=== PATIENT | female | born 1990 | race Two or more races ===

== ENCOUNTER 2025-01-08 06:03 | Inpatient (IN) | payer OTHER ==
[~2025-01-08] VITALS: Ht 162.6 cm; Wt 93.7 kg
[2025-01-08] VITALS (12 sets, daily range): BP systolic 89–107; BP diastolic 47–70; PULSE 70–126; RESP 12–19; TEMP 97.6–100.5; O2SAT 94–100
--- NOTE | 2025-01-08 06:45 | ED.PDOC ---
General HPI Comments This is a 34 year old female KRISTA presenting to the ED with chief complaint of flank pain and hospital transfer. EMS reports patient is coming from [facility] due to having diagnosis of 8mm obstructing right kidney stone and 6mm non-obstructing left kidney stone with associated flank pain and nausea. Patient relays that she has history of kidney stones and lithotripsy in the past. Patient states she was given morphine for pain control while at [place]. Patient denies any dysuria, hematuria, vomiting, abdominal pain, or fever. Chief Complaint: Flank Pain Time Seen by MD: 06:43 Reviewed notes: Nurses Notes, Willow Analyst Notes, Medications, Allergies Allergies: Coded Allergies: NO KNOWN ALLERGIES (Unverified , 01/08/25) Information Source: Patient, Emergency Med Personnel Mode of Arrival: EMS Severity: Moderate Timing: Days Duration: Since onset Prehospital treatment: None Onset: Spontaneous History of: Kidney stone Location: (R) Flank, (L)Flank Modifying factors: None associated signs and symptoms: Nausea, Flank Pain Past Medical History PAST MEDICAL HISTORY: Kidney Stones Surgical History: , Hysterectomy, Tubal Ligation Surgical History (Other): Lithotripsy [employer] WORK[employer] History: Denies all [employer]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 Family History Family History: Reviewed,noncontributory to illness Social History Smoker: Non-Smoker Alcohol: Denies ETOH Use Drugs: Denies Drug Use Lives In: Home Constitutional: denies: chills, diaphoresis, fatigue, fever, malaise, sweats, weakness, others EENTM: denies: blurred vision, double vision, ear bleeding, ear discharge, ear drainage, ear pain, ear ringing, eye pain, eye redness, hearing loss, mouth pain, mouth swelling, nasal discharge, nose bleeding, nose congestion, nose pain, photophobia, tearing, throat pain, throat swelling, voice changes, others Respiratory: denies: cough, hemoptysis, orthopnea, SOB at rest, shortness of breath, SOB with excertion, stridor, wheezing, others Cardiovascular: denies: chest pain, dizzy spells, diaphoresis, Dyspnea on exertion, edema, irregular heart beat, left arm pain, lightheadedness, palpitations, PND, syncope, others Gastrointestinal: reports: nausea; denies: abdomen distended, abdominal pain, blood streaked bowels, constipated, diarrhea, dysphagia, difficulty swallowing, hematemesis, melena, poor appetite, poor fluid intake, rectal bleeding, rectal pain, vomiting, others Genitourinary: reports: flank pain; denies: abnormal vagina bleeding, burning, dyspareunia, dysuria, frequency, hematuria, incontinence, pain, , vagina discharge, urgency, others Neurological: denies: dizziness, fainting, headache, left sided numbness, left sided weakness, numbness, paresthesia, pre-existing deficit, right sided numbness, right sided weakness, seizure, speech problems, tingling, tremors, we akness, others Musculoskeletal: denies: back pain, gout, joint pain, joint swelling, muscle pain, muscle stiffness, neck pain, others Integumetry: denies: bruises, change in color, change in hair/nails, dryness, laceration, lesions, lumps, rash, wounds, others Allergic/Immunocompromised: denies: Difficulty Healing, Frequent Infections, Hives, Itching, others Hematologic/Lymphatic: denies: anemia, blood clots, easy bleeding, easy bruising, swollen glands, others Endocrine: denies: excessive hunger, excessive sweating, excessive thirst, excessive urination, flushing, intolerance to cold, intolerance to heat, unexplained weight gain, unexplained weight loss, others Psychiatric: denies: anxiety, bipolar disorder, depression, hopeless, panic disorder, schizophrenia, sleepless, suicidal, others All Other Systems: Reviewed and Negative Physical Exam General Appearance: Moderate Distress, Normal HEENT: Normal ENT Inspection, Pharynx Normal, TMs Normal Neck: Full Range of Motion, Non-Tender, Normal, Normal Inspection Respiratory: Chest Non-Tender, Lungs Clear, No Accessory Muscle Use, No Respiratory Distress, Normal Breath Sounds Cardiovascular: No Edema, No JVD, No Murmur, No Gallop, Normal Peripheral Pulses, Regular Rate/Rhythm Breast Exam: Deferred Gastrointestinal: No Organomegaly, Non Tender, No Pulsatile Mass, Normal Bowel Sounds, Soft Genitalia: Deferred Pelvic: Deferred Rectal: Deferred Extremities: No calf tenderness, Normal capillary refill, Normal inspection, Normal range of motion, Non-tender, No pedal edema Musculoskeletal : Apperance: Normal Neurologic: Alert, timber deadener II-XII nml as Tested, No Motor Deficits, Normal Affect, Normal Mood, No Sensory Deficits Cerebellar Function: Normal Reflexes: Normal Skin: Dry, Normal Color, Warm Peripheral Pulses: 3+ Radial (R), 3+ Radial (L) Lymphatic: No Adenopathy Was a procedure done? Was a procedure done?: No Differential Diagnosis Kidney stone (Female): Pyelonephritis, Urolithiasis X-Ray, Labs, Meds, VS Vital Signs Date Time Temp Pulse Resp B/P (MAP) Pulse Ox O2 Delivery O2 Flow Rate FiO2 01/08/25 06:16 98.6 70 16 107/72 (84) 98 98.6 01/08/25 06:16 70 16 98 Room Air* 0 21 01/08/25 06:09 98.6 70 16 107/72 (84) 98 98.6 Lab Test 01/08/25 06:54 Range/Units White Blood Count Pending Red Blood Count Pending Hemoglobin Pending Hematocrit Pending Mean Corpuscular Volume Pending Mean Corpuscular Hemoglobin Pending Mean Corpuscular Hemoglobin Concent Pending Red Cell Distribution Width Pending Platelet Count Pending Mean Platelet Volume Pending Neutrophils (%) (Auto) Pending Lymphocytes (%) (Auto) Pending Monocytes (%) (Auto) Pending Basophils (%) (Auto) Pending Neutrophils # (Auto) Pending Lymphocytes # (Auto) Pending Monocytes # (Auto) Pending Sodium Level Pending Potassium Level Pending Chloride Level Pending Carbon Dioxide Level Pending Anion Gap Pending Blood Urea Nitrogen Pending Creatinine Pending Glomerular Filtration Rate Calc Pending BUN/Creatinine Ratio Pending Serum Glucose Pending Calcium Level Pending Patient alert. Came in from [facility] for kidney stone. Imaging from [place] showed 8 mm kidney stone. Vitals stable. Pain better controlled. Establish intravenous access. Was given fluids. Was given pain medication. Was given Zofran. Reviewed her visit at [facility]. Explained to the patient. Continue monitoring. Time of 1ST Reevaluation: 07:42 Reevaluation 1ST: Unchanged Patient Education/Counseling: Diagnosis, Treatment Family Education/Counseling: No Family Present Additional Information Previous visits reviewed: None The following tests were ordered, and results were reviewed by me: CBC, BMP, UA Additional Information was gathered from interviewing the following independent historians: EMS I reviewed and agreed with the following test results read by other providers: None I discussed treatment and results with medical personnel and: patient Comprehensive systems review obtained and negative except for what is stated in the HPI. SEPSIS Sepsis Screen Date sepsis recognized/suspect: Jan 08, 2025 Time Sepsis recognized/suspect: 0608 Recent Procedure: No On Antibiotic Therapy: No Respiratory Rate >20: No Heart Rate >90: No Temp<36 C (96.8 F) or >38.3 C: No SBP <90 or MAP <65 mmHG: No New Acute Mental Status Change: No Is the patient on CPAP, BIPAP,: No Physician Orders Complete Blood Count (01/08/25 06:37) Urinalysis (01/08/25 06:37) Sodium Chloride 0.9% (01/08/25 06:45) Basic Metabolic Panel (01/08/25 06:37) Vital Signs Date Time Temp Pulse Resp B/P (MAP) Pulse Ox O2 Delivery O2 Flow Rate FiO2 01/08/25 06:16 98.6 70 16 107/72 (84) 98 98.6 01/08/25 06:16 70 16 98 Room Air* 0 21 01/08/25 06:09 98.6 70 16 107/72 (84) 98 98.6 Laboratory Tests Test 01/08/25 06:54 White Blood Count Pending Departure 1 Departure Time of Disposition: 07:19 Impression: Primary Impression: Kidney stone Disposition: ADMITTED INPATIENT Admit to: Med Surg Condition: Guarded Critical Care Note Critical Care Time?: Yes (90 min-critical care time only) Critical care comment: Pain control Stability Stability form required: No Heart Score Heart Score: Heart Score Response (Comments) Value History N/A 0 EKG N/A 0 Age N/A 0 Risk Factors N/A 0 Troponin N/A 0 Total 0 I personally scribed for SHILPI FONTAINE MD ([email or web address]) on 01/08/25 at 06:45. Electronically submitted by Markus Fraire ([email or web address]). SHILPI FONTAINE MD Jan 08, 2025 06:45
[2025-01-08 07:27] LABS: Hematocrit 38.0 % (36.0-46.0); Hemoglobin 13.0 g/dL (12.2-16.2); Mean Corpuscular Hemoglobin 33.1 pg (28.0-32.0); Mean Corpuscular Volume 96.5 fL (80.0-100.0); Nucleated Red Blood Cells % 0.0 %
[2025-01-08] MEDS: SODIUM CHLORIDE 0.9% 1,000 ML IVB ONE (07:34)
[2025-01-08] MEDS: KETOROLAC TROMETH 30 MG/ML 1ML VIAL IV ONE (07:34)
[2025-01-08 07:37] LABS: Chloride 106 mmol/L (98-107); Potassium 4.3 mmol/L (3.5-5.1); Sodium 140 mmol/L (136-145)
[2025-01-08 07:38] LABS: Anion Gap 7 (5-15); Carbon Dioxide 27 mmol/L (20-31)
[2025-01-08 07:39] LABS: Calcium 9.2 mg/dL (8.7-10.4)
[2025-01-08] MEDS: ONDANSETRON HCL 4 MG/2 ML VIAL IV ONE ×2 (07:42→10:16)
[2025-01-08 07:44] LABS: BUN/Creatinine Ratio 10.0 (10.0-20.0); Blood Urea Nitrogen 10 mg/dL (9-23); Glucose 141 mg/dL (74-106)
[2025-01-08] MEDS: MORPHINE SULFATE 4 MG/ML SYR/VIAL IV ONE (10:17)
[2025-01-08 11:05] LABS: Urine Protein, UAD Negative (Negative)
[2025-01-08] MEDS ORDERED: MORPHINE SULFATE INJ 2 MG/ml SYRG IV PRN (11:15)
--- NOTE | 2025-01-08 11:16 | DVH ---
CLINICAL INFORMATION: 34 years old, Female; flank pain. TECHNIQUE: Axial CT images of the abdomen and pelvis were obtained without IV contrast. Coronal and s agittal reformatted images were obtained, reviewed, and stored. Evaluation of the parenchymal organs is limited without IV contrast. Evaluation of the bowel and mesentery is limited without oral contras t. All CT scans at this medical facility are performed using dose modulation techniques as appropriat e to a performed exam including the following: Automated exposure control was utilized; adjustment of the MA and/or KV according to patient size; and use of iterative reconstruction technique. CTDIvol = 15.13 mGy DLP = 910.28 mGy-cm COMPARISON: None FINDINGS: Lung bases: Mild atelectasis in the lung bases. Liver: Hepatic steatosis. Liver is enlarged, measuring up to 20 cm in craniocaudal dimension of the m idclavicular line. Biliary: No calcified gallstones or biliary ductal dilatation. Spleen: Unremarkable. Pancreas: Grossly unremarkable in its noncontrast enhanced appearance. Adrenal glands: Unremarkable. No mass. Kidneys: Moderate to marked right hydronephrosis and hydroureter with 7 mm obstructing calculus in th e distal right ureter just proximal to the ureterovesical junction. There is moderate right perinephr ic and periureteral stranding. There are additional small bilateral renal calculi, with the largest i n the inferior pole of the left kidney measuring 4.5 mm. Aorta/Vascular: Minimal atherosclerotic calcification. No abdominal aortic aneurysm. Retroperitoneum: No mass or lymphadenopathy. Bowel/mesentery: No small bowel obstruction. No free air or free fluid. Appendix is visualized and ap pears unremarkable. Pelvic organs: Grossly unremarkable. Bladder: Unremarkable. No mass. Abdominal wall: No mass or hernia. Bones: No acute fracture or suspicious intraosseous lesion. IMPRESSION: 1. Moderate to marked right hydronephrosis and hydroureter with 7 mm obstructing calculus in the dist al right ureter, just proximal to the ureterovesical junction. 2. Additional small bilateral nonobstructing renal calculi. 3. Hepatic steatosis and hepatomegaly. 4. Additional findings as described above.
--- NOTE | 2025-01-08 11:22 | DVHHP2 ---
History of Present Illness Reason for Visit: Right flank pain History of Present Illness Ariana Naidu is a 34-year-old female with past medical history of kidney stones, , hysterectomy, tubal ligation, and lithotripsy unknown which kidney in 2008 who presents to the ED with right flank pain. Patient was a transfer from [facility] diagnosed with an 8 mm obstructing right kidney stone and 6 mm nonobstructing left kidney stone. Patient reports her pain 8/10 sharp and constant. She states that medications make it better and the pain that started yesterday around 3:00 p.m. Patient denies any recent sick contacts, recent trauma or injury, recent travels, recent ingestion of spoiled food, abdominal pain, nausea, vomiting, diarrhea, chest pain, shortness of breath, fever, chills, lightheadedness, weakness, or dizziness. Past Medical History Nephrolithiasis Past Surgical History: , Hysterectomy, Other (Lithotripsy in 2008), Tubal Ligation Family History: Cancer, DM, Other (Mom with breast cancer and diabetes. Dad with diabetes, leukemia, kidney disease, and CHF.) Smoke: No ALCOHOL: none Lives: with Family Domestic Violence: Neg Review of Systems Musculoskeletal: other (Right flank pain) Allergies: Coded Allergies: NO KNOWN ALLERGIES (Unverified , 01/08/25) Exam Vital Signs Vital Signs Date Time Temp Pulse Resp B/P (MAP) Pulse Ox O2 Delivery O2 Flow Rate FiO2 01/08/25 11:14 90 14 103/61 01/08/25 11:08 98.1 96 98.1 01/08/25 07:50 Room Air* 0 21 General Appearance: Alert, Oriented X3, Cooperative, No acute distress HEENT: Atraumatic, PERRLA, EOMI, Mucous membr. moist/pink Respiratory: Normal air movement Cardiovascular: Normal S1, Normal S2 Abdominal: Soft Extremities: Normal pulses Skin: No significant lesion Neuro: Normal speech, Strength at 5/5 X4 ext, Normal tone, Sensation intact Psych/Mental Status: Mental status NL, Mood NL Labs/Xrays Labs Test 01/08/25 10:00 01/08/25 06:54 Range/Units Urine Color Light-yellow Yellow Urine Clarity Clear Clear Urine pH 5.5 5.0-9.0 Urine Specific [place] 1.023 1.001-1.035 Urine Protein Negative Negative Urine Ketones Negative Negative Urine Blood 2+ H Negative /uL Urine Nitrite Negative Negative Urine Bilirubin Negative Negative Urine Urobilinogen Normal Negative mg/dL Urine Leukocyte Esterase Trace Negative /uL Urine RBC 17 0 - 4 /hpf Urine Microscopic WBC 14 H 0-5 /HPF Urine Squamous Epithelial Cells Few <5 /hpf Urine Bacteria None seen None Seen /hpf Urine Mucus Few None Seen Urine Glucose Normal Normal mg/dL White Blood Count 13.1 H 4.4-10.8 10^3/uL Red Blood Count 3.94 L 4.0-5.20 10^6/uL Hemoglobin 13.0 12.2-16.2 g/dL Hematocrit 38.0 36.0-46.0 % Mean Corpuscular Volume 96.5 80.0-100.0 fL Mean Corpuscular Hemoglobin 33.1 H 28.0-32.0 pg Mean Corpuscular Hemoglobin Concent 34.3 32.0-36.0 g/dL Red Cell Distribution Width 12.8 11.8-14.3 % Platelet Count 263 140-450 10^3/uL Mean Platelet Volume 8.2 6.9-10.8 fL Neutrophils (%) (Auto) 85.7 H 37.0-80.0 % Lymphocytes (%) (Auto) 8.6 L 10.0-50.0 % Monocytes (%) (Auto) 5.2 0.0-12.0 % Eosinophils (%) (Auto) 0.3 0.0-7.0 % Basophils (%) (Auto) 0.2 0.0-2.0 % Neutrophils # (Auto) 11.2 H 1.6-8.6 10 ^3/uL Lymphocytes # (Auto) 1.1 0.4-5.4 10 ^3/uL Monocytes # (Auto) 0.7 0-1.3 10 ^3/uL Eosinophils # (Auto) 0 0-0.8 10 ^3/uL Basophils # (Auto) 0 0-0.2 10 ^3/uL Nucleated Red Blood Cells 0.0 % Sodium Level 140 136-145 mmol/L Potassium Level 4.3 3.5-5.1 mmol/L Chloride Level 106 98-107 mmol/L Carbon Dioxide Level 27 20-31 mmol/L Anion Gap 7 5-15 Blood Urea Nitrogen 10 9-23 mg/dL Creatinine 1.00 0.550-1.02 mg/dL Glomerular Filtration Rate Calc 75 >90 mL/min BUN/Creatinine Ratio 10.0 10.0-20.0 Serum Glucose 141 H 74-106 mg/dL Calcium Level 9.2 8.7-10.4 mg/dL CLINICAL INFORMATION: 34 years old, Female; flank pain. TECHNIQUE: Axial CT images of the abdomen and pelvis were obtained without IV contrast. Coronal and sagittal reformatted images were obtained, reviewed, and stored. Evaluation of the parenchymal organs is limited without IV contrast. Evaluation of the bowel and mesentery is limited without oral contrast. All CT scans at this medical facility are performed using dose modulation techniques as appropriate to a performed exam including the following: Automated exposure control was utilized; adjustment of the MA and/or KV according to patient size; and use of iterative reconstruction technique. CTDIvol = 15.13 mGy DLP = 910.28 mGy-cm COMPARISON: None FINDINGS: Lung bases: Mild atelectasis in the lung bases. Liver: Hepatic steatosis. Liver is enlarged, measuring up to 20 cm in craniocaudal dimension of the midclavicular line. Biliary: No calcified gallstones or biliary ductal dilatation. Spleen: Unremarkable. Pancreas: Grossly unremarkable in its noncontrast enhanced appearance. Adrenal glands: Unremarkable. No mass. Kidneys: Moderate to marked right hydronephrosis and hydroureter with 7 mm obstructing calculus in the distal right ureter just proximal to the ureterovesical junction. There is moderate right perinephric and periureteral stranding. There are additional small bilateral renal calculi, with the largest in the inferior pole of the left kidney measuring 4.5 mm. Aorta/Vascular: Minimal atherosclerotic calcification. No abdominal aortic aneurysm. Retroperitoneum: No mass or lymphadenopathy. Bowel/mesentery: No small bowel obstruction. No free air or free fluid. Appendix is visualized and appears unremarkable. Pelvic organs: Grossly unremarkable. Bladder: Unremarkable. No mass. Abdominal wall: No mass or hernia. Bones: No acute fracture or suspicious intraosseous lesion. IMPRESSION: 1. Moderate to marked right hydronephrosis and hydroureter with 7 mm obstructing calculus in the distal right ureter, just proximal to the ureterovesical junction. 2. Additional small bilateral nonobstructing renal calculi. 3. Hepatic steatosis and hepatomegaly. SEPSIS Sepsis Screen Date sepsis recognized/suspect: Jan 08, 2025 Time Sepsis recognized/suspect: 0750 Recent Procedure: No On Antibiotic Therapy: No Respiratory Rate >20: No Heart Rate >90: No Temp<36 C (96.8 F) or >38.3 C: No SBP <90 or MAP <65 mmHG: No New Acute Mental Status Change: No Is the patient on CPAP, BIPAP,: No Physician Orders Ct Ab Pel Wo Con-No Oral Or Iv (01/08/25 10:33) Admit (01/08/25 11:15) Allergies (01/08/25 11:15) Code Status (01/08/25 11:15) 0.9% Ns 1000 Ml (01/08/25 11:15) Hydrocodone-Acet 5/325mg Tab ([place] (01/08/25 11:15) Ondansetron Hcl (Zofran) (01/08/25 11:15) Complete Blood Count (01/09/25 04:00) Comprehensive Metabolic Panel (01/09/25 04:00) Acetaminophen Tablet (Tylenol Tablet) (01/08/25 11:15) Morphine Sulfate Injection (01/08/25 11:15) Sequential Compression Device (01/08/25 ) Ceftriaxone Ivpb Rocephin (01/08/25 11:15) Vital Signs Date Time Temp Pulse Resp B/P (MAP) Pulse Ox O2 Delivery O2 Flow Rate FiO2 01/08/25 11:14 90 14 103/61 01/08/25 11:08 98.1 78 16 110/64 (79) 96 98.1 01/08/25 10:17 78 16 110/64 01/08/25 10:07 82 18 110/64 (79) 97 01/08/25 07:50 98.1 72 18 101/53 (69) 96 98.1 01/08/25 07:50 72 18 96 Room Air* 0 21 01/08/25 06:16 98.6 70 16 107/72 (84) 98 98.6 01/08/25 06:16 70 16 98 Room Air* 0 21 01/08/25 06:09 98.6 70 16 107/72 (84) 98 98.6 Laboratory Tests Test 01/08/25 06:54 White Blood Count 13.1 10^3/uL (4.4-10.8) H Medications Medications Dose Ordered Sig/Mary Route Start Time Stop Time Status Last Admin Dose Admin Ketorolac Tromethamine 30 mg ONCE ONCE IV 01/08/25 06:45 01/08/25 06:46 DC 01/08/25 07:34 30 MG Morphine Sulfate 4 mg ONCE ONCE IV 01/08/25 09:30 01/08/25 09:31 DC 01/08/25 10:17 4 MG Ondansetron HCl 4 mg ONCE ONCE IV 01/08/25 06:45 01/08/25 06:46 DC 01/08/25 07:42 4 MG Ondansetron HCl 4 mg ONCE ONCE IV 01/08/25 09:30 01/08/25 09:31 DC 01/08/25 10:16 4 MG Sodium Chloride 1,000 ml @ 1,000 mls/hr Q1H ONCE IVB 01/08/25 06:45 01/08/25 07:44 DC 01/08/25 07:34 1,000 MLS/HR Assessment/Plan Assessment/Plan Assessment Intractable right flank pain likely due to kidney stone Moderate to marked right hydronephrosis and hydroureter with 7 mm obstructing calculus in the distal right ureter, just proximal to the ureterovesical junction small bilateral nonobstructing renal calculi Hepatic steatosis Hepatomegaly Leukocytosis likely due to nephrolithiasis Hyperglycemia Obesity History of nephrolithiasis History of History of hysterectomy History of tubal ligation History of lithotripsy in [address] [facility] CT abdomen and pelvis ordered Antiemetics Pain management IV antibiotics-ceftriaxone UA NS 1 L given in ED Hemoglobin A1c ISS and Accu-Cheks IV fluids NPO for now until after urology sees patient Per patient no home medications DVT prophylaxis-not indicated patient ambulating PUD prophylaxis-not indicated no history of GERD or GI bleed Discussed plan of care with patient and nurse Counseled patient on lifestyle modifications, diet, and exercise Urology consult [id number] Preventive counseling healthy eating habits, physical activity, and regular checkups Plan discussed with: Patient My Orders Orders - DICK MARION DIRECTOR [employer] Procedure Category Date Status Time Ct Ab Pel Wo Con-No CT 01/08/25 Resulted Oral Or Iv 10:33 Admit ADMIT 01/08/25 Verified 11:15 Allergies SHELIA 01/08/25 Verified 11:15 Code Status CODE 01/08/25 Verified 11:15 0.9% Ns 1000 Ml PHA 01/08/25 Verified 11:15 Hydrocodone-Acet PHA 01/08/25 Verified 5/325mg Tab ([place]y 11:15 Ondansetron Hcl PHA 01/08/25 Verified (Zofran) 11:15 Complete Blood Count LAB 01/09/25 Verified 04:00 Comprehensive LAB 01/09/25 Verified Metabolic Panel 04:00 Acetaminophen Tablet PHA 01/08/25 Verified (Tylenol Tablet) 11:15 Morphine Sulfate PHA 01/08/25 Verified Injection 11:15 Sequential SHELIA 01/08/25 Verified Compression Device Ceftriaxone Ivpb PHA 01/08/25 Verified Rocephin 11:15 Date of Service: Jan 08, 2025 Billing Provider: DICK MARION Common Visit Codes: 77947-[id number] INP/OBS CARE (HIGH) Secondary Visit Codes: [id number] COUNSELING IND DICK MARION Jan 08, 2025 11:22
[2025-01-08] MEDS ORDERED: DEXTROSE (50%) 50ML SYRG IV PRN (11:30)
[2025-01-08] MEDS ORDERED: MANNITOL FTV 25% 12.5 GM/50 ML 50 ML IV ONE (12:15)
[2025-01-08 12:54] LABS: INR 0.98 (0.9-1.15); Partial Thromboplastin Time 27.4 SEC (24.5-34.5); Prothrombin Time 10.4 sec (9.3-11.8)
[2025-01-08] MEDS: cefTRIAXone 1GM/50ML D5W 50 ML IV SCH (12:59)
[2025-01-08] MEDS: SODIUM CHLORIDE 0.9% 1,000 ML IV SCH (13:06)
[2025-01-08] MEDS: InsuLIN REG 1unit/0.01ml Soln (100units/ml) SC SCH (13:06)
[2025-01-08] MEDS: ACCU-CHEK COMFORT CURVE STRIP VI SCH (13:06)
[2025-01-08] MEDS: fentaNYL CITRATE 100 MCG/2 ML VL ONE ×2 (14:15→15:09)
[2025-01-08] MEDS: MIDAZOLAM HCL 2MG/2ML 2ml VIAL (1mg/ml) ONE (14:16)
[2025-01-08] MEDS: LIDOCAINE 2%HCL (LOCAL ANESTH.) INJ 20ML MDV ONE (14:16)
[2025-01-08] MEDS: IODIXANOL 320MG/ML 100ML BTL IV ONE (14:25)
--- NOTE | 2025-01-08 17:03 | DVH ---
PROCEDURE: Genitourinary catheter placement Procedural Personnel Attending physician(s): Adelfo Lozano Fellow physician(s): None Resident physician(s): None Advanced practice provider(s): None Pre-procedure diagnosis: Right UVJ stone Post-procedure diagnosis: Same Indication: Urinary obstruction No Additional clinical history: None Complications: No immediate complications. IMPRESSION: Right nephrostomy tube placement. Plan: Flush drain with 10 cc normal saline daily to maintain patency PROCEDURE SUMMARY - Target organ: Unilateral burns paiute kidney - Image-guided placement of genitourinary catheter(s) - Additional procedure(s): None PROCEDURE DETAILS: Pre-procedure Consent: Informed consent for the procedure including risks, benefits and alternatives was obtained a nd time-out was performed prior to the procedure. Preparation: The site was prepared and draped using maximal sterile barrier technique including cutan eous antisepsis. Anesthesia/sedation Level of anesthesia/sedation: Moderate sedation (conscious sedation) Anesthesia/sedation administered by: Independent trained observer under attending supervision with co ntinuous monitoring of the patient s level of consciousness and physiologic status Total intra-service sedation time (minutes): 30 Genitourinary catheter placement Side:Right burns paiute Local anesthesia was administered. A needle was advanced into a lower pole calyx under ultrasound and fluoroscopy guidance. A wire was advanced, the tract was serially dilated and a nephrostomy tube was placed . Contrast injection was performed. Genitourinary catheter placed: 8.5 Croatian multipurpose drain Findings: Moderate hydronephrosis with opacification to the level of the midureter External catheter securement: Non-absorbable suture Additional genitourinary system intervention Side: NA Genitourinary intervention: None Location of intervention: Not applicable Device used: Not applicable Description of intervention: Not applicable Post-intervention findings: Not applicable Contrast Contrast agent: Omnipaque 350 Contrast volume (mL): 7 Radiation Dose Fluoroscopy time (seconds): 53 Reference air kerma (mGy): 6 Kerma area product (Gy-cm2): 0.88 Additional Details Additional description of procedure: None Registry event: V/3/f Device used: Not applicable Equipment details: None Specimens removed: None. A sample was not sent for analysis. Estimated blood loss (mL): Less than 10 Standardized report: [email or web address] Attestation Signer name: Adelfo Lozano I attest that I was present for the entire procedure. I reviewed the stored images and agree with the report as written.
--- NOTE | 2025-01-08 17:04 | DVH ---
PROCEDURE: Genitourinary catheter placement Procedural Personnel Attending physician(s): Adelfo Lozano Fellow physician(s): None Resident physician(s): None Advanced practice provider(s): None Pre-procedure diagnosis: Right UVJ stone Post-procedure diagnosis: Same Indication: Urinary obstruction No Additional clinical history: None Complications: No immediate complications. IMPRESSION: Right nephrostomy tube placement. Plan: Flush drain with 10 cc normal saline daily to maintain patency PROCEDURE SUMMARY - Target organ: Unilateral [place] kidney - Image-guided placement of genitourinary catheter(s) - Additional procedure(s): None PROCEDURE DETAILS: Pre-procedure Consent: Informed consent for the procedure including risks, benefits and alternatives was obtained a nd time-out was performed prior to the procedure. Preparation: The site was prepared and draped using maximal sterile barrier technique including cutan eous antisepsis. Anesthesia/sedation Level of anesthesia/sedation: Moderate sedation (conscious sedation) Anesthesia/sedation administered by: Independent trained observer under attending supervision with co ntinuous monitoring of the patient s level of consciousness and physiologic status Total intra-service sedation time (minutes): 30 Genitourinary catheter placement Side:Right [place] Local anesthesia was administered. A needle was advanced into a lower pole calyx under ultrasound and fluoroscopy guidance. A wire was advanced, the tract was serially dilated and a nephrostomy tube was placed . Contrast injection was performed. Genitourinary catheter placed: 8.5 Sami multipurpose drain Findings: Moderate hydronephrosis with opacification to the level of the midureter External catheter securement: Non-absorbable suture Additional genitourinary system intervention Side: NA Genitourinary intervention: None Location of intervention: Not applicable Device used: Not applicable Description of intervention: Not applicable Post-intervention findings: Not applicable Contrast Contrast agent: Omnipaque 350 Contrast volume (mL): 7 Radiation Dose Fluoroscopy time (seconds): 53 Reference air kerma (mGy): 6 Kerma area product (Gy-cm2): 0.88 Additional Details Additional description of procedure: None Registry event: V/3/f Device used: Not applicable Equipment details: None Specimens removed: None. A sample was not sent for analysis. Estimated blood loss (mL): Less than 10 Standardized report: [email or web address] Attestation Signer name: Adelfo Lozano I attest that I was present for the entire procedure. I reviewed the stored images and agree with the report as written.
[2025-01-08] MEDS: HYDROcodone-ACET 5/325MG TAB PO PRN (18:11)
--- NOTE | 2025-01-08 19:00 | DVHINCON2 ---
Date of service: Jan 08, 2025 Referring Physician hospitalist Reason for Consultation hydronephrosis, obstructing stone History of Present Illness History Source: Patient, RN Notes, MD Notes Exam Limitations: No limitations HPI 34 year old female KRISTA presenting to the ED with chief complaint of flank pain and hospital transfer. EMS reports patient is coming from [facility] due to having diagnosis of 8mm obstructing right kidney stone and 6mm non- obstructing left kidney stone with associated flank pain and nausea. Patient relays that she has history of kidney stones and lithotripsy in the past. Patient states she was given morphine for pain control while at [place]. Patient denies any dysuria, hematuria, vomiting, abdominal pain, or fever. Past Medical History Patient Family History: Cardiovascular disease G8 FATHER Diabetes mellitus G8 MOTHER G8 FATHER FH: breast cancer G8 MOTHER FH: chronic kidney disease G8 FATHER Review of Systems Genitourinary: Pain H&P Exam Vital Signs Vital Signs Date Time Temp Pulse Resp B/P (MAP) Pulse Ox O2 Delivery O2 Flow Rate FiO2 01/08/25 17:00 97.6 101 19 107/65 (79) 99 97.6 01/08/25 16:37 Nasal Cannula* 2 28 General Appeara: Well developed, Well nourished, Normal Appearance Neuro/Mental St: Alert, Oriented Appearance: Appropriate appearance, Appropriate insight Eye contact/ Speech: Cooperative, Good eye contact, Normal speech Skin Exam: Normal inspection, Normal color, Warm/dry Labs/Xrays [place] [address] Ph: [phone] DIAGNOSTIC IMAGING Diagnostic Imaging Report : [id number] Signed PATIENT: ESTELLA CHRISTOPHERLORENZOCCT: [id number] UNIT: [id number] : 1990 LOC: ER ROOM / BED: / AGE / SEX: 34 / F ADM STATUS: REG ER SERVICE 1033 ORDERING PHYSICIAN: DICK MARION PROCEDURE(s): ABPL - CT AB PEL WO CON-NO ORAL OR IV REASON: flank pain ORDER NUMBER(s): [id number], ACCESSION NUMBER(s): [id number] CLINICAL INFORMATION: 34 years old, Female; flank pain. TECHNIQUE: Axial CT images of the abdomen and pelvis were obtained without IV contrast. Coronal and sagittal reformatted images were obtained, reviewed, and stored. Evaluation of the parenchymal organs is limited without IV contrast. Evaluation of the bowel and mesentery is limited without oral contrast. All CT scans at this medical facility are performed using dose modulation techniques as appropriate to a performed exam including the following: Automated exposure control was utilized; adjustment of the MA and/or KV according to patient size; and use of iterative reconstruction technique. CTDIvol = 15.13 mGy DLP = 910.28 mGy-cm COMPARISON: None FINDINGS: Lung bases: Mild atelectasis in the lung bases. Liver: Hepatic steatosis. Liver is enlarged, measuring up to 20 cm in craniocaudal dimension of the midclavicular line. Biliary: No calcified gallstones or biliary ductal dilatation. Spleen: Unremarkable. Pancreas: Grossly unremarkable in its noncontrast enhanced appearance. Adrenal glands: Unremarkable. No mass. Kidneys: Moderate to marked right hydronephrosis and hydroureter with 7 mm obstructing calculus in the distal right ureter just proximal to the ureterovesical junction. There is moderate right perinephric and periureteral stranding. There are additional small bilateral renal calculi, with the largest in the inferior pole of the left kidney measuring 4.5 mm. Aorta/Vascular: Minimal atherosclerotic calcification. No abdominal aortic aneurysm. Retroperitoneum: No mass or lymphadenopathy. Bowel/mesentery: No small bowel obstruction. No free air or free fluid. Appendix is visualized and appears unremarkable. Pelvic organs: Grossly unremarkable. Bladder: Unremarkable. No mass. Abdominal wall: No mass or hernia. Bones: No acute fracture or suspicious intraosseous lesion. IMPRESSION: 1. Moderate to marked right hydronephrosis and hydroureter with 7 mm obstructing calculus in the distal right ureter, just proximal to the ureterovesical junction. 2. Additional small bilateral nonobstructing renal calculi. 3. Hepatic steatosis and hepatomegaly. 4. Additional findings as described above. ATED BY: JOSE RAMON PARKER DO DICTATED DATE/TIME: 01/08/25 1114 SIGNED BY: JOSE RAMON PARKER DO SIGNED DATE/TIME: 01/08/25 1114 CC: Labs Test 01/08/25 17:10 01/08/25 12:15 01/08/25 10:00 01/08/25 06:54 Range/Units POC Glucose 127 H 70-106 mg/dl Prothrombin Time 10.4 9.3-11.8 sec Prothrombin Time INR 0.98 0.9-1.15 Activated Partial Thromboplast Time 27.4 24.5-34.5 SEC Urine Color Light-yellow Yellow Urine Clarity Clear Clear Urine pH 5.5 5.0-9.0 Urine Specific [place] 1.023 1.001-1.035 Urine Protein Negative Negative Urine Ketones Negative Negative Urine Blood 2+ H Negative /uL Urine Nitrite Negative Negative Urine Bilirubin Negative Negative Urine Urobilinogen Normal Negative mg/dL Urine Leukocyte Esterase Trace Negative /uL Urine RBC 17 0 - 4 /hpf Urine Microscopic WBC 14 H 0-5 /HPF Urine Squamous Epithelial Cells Few <5 /hpf Urine Bacteria None seen None Seen /hpf Urine Mucus Few None Seen Urine Glucose Normal Normal mg/dL White Blood Count 13.1 H 4.4-10.8 10^3/uL Red Blood Count 3.94 L 4.0-5.20 10^6/uL Hemoglobin 13.0 12.2-16.2 g/dL Hematocrit 38.0 36.0-46.0 % Mean Corpuscular Volume 96.5 80.0-100.0 fL Mean Corpuscular Hemoglobin 33.1 H 28.0-32.0 pg Mean Corpuscular Hemoglobin Concent 34.3 32.0-36.0 g/dL Red Cell Distribution Width 12.8 11.8-14.3 % Platelet Count 263 140-450 10^3/uL Mean Platelet Volume 8.2 6.9-10.8 fL Neutrophils (%) (Auto) 85.7 H 37.0-80.0 % Lymphocytes (%) (Auto) 8.6 L 10.0-50.0 % Monocytes (%) (Auto) 5.2 0.0-12.0 % Eosinophils (%) (Auto) 0.3 0.0-7.0 % Basophils (%) (Auto) 0.2 0.0-2.0 % Neutrophils # (Auto) 11.2 H 1.6-8.6 10 ^3/uL Lymphocytes # (Auto) 1.1 0.4-5.4 10 ^3/uL Monocytes # (Auto) 0.7 0-1.3 10 ^3/uL Eosinophils # (Auto) 0 0-0.8 10 ^3/uL Basophils # (Auto) 0 0-0.2 10 ^3/uL Nucleated Red Blood Cells 0.0 % Sodium Level 140 136-145 mmol/L Potassium Level 4.3 3.5-5.1 mmol/L Chloride Level 106 98-107 mmol/L Carbon Dioxide Level 27 20-31 mmol/L Anion Gap 7 5-15 Blood Urea Nitrogen 10 9-23 mg/dL Creatinine 1.00 0.550-1.02 mg/dL Glomerular Filtration Rate Calc 75 >90 mL/min BUN/Creatinine Ratio 10.0 10.0-20.0 Serum Glucose 141 H 74-106 mg/dL Hemoglobin A1c 5.0 <5.7 % A1C Calcium Level 9.2 8.7-10.4 mg/dL Assessment/Plan Problem List: (1) Hydronephrosis with renal and ureteral calculous obstruction (2) Kidney stone Plan consult IR for PCN outpt lithotripsy to be arranged. machine is not available at this time Plan discussed with: Patient, Other [employer] Jan 08, 2025 19:00
[2025-01-08] MEDS: ACETAMINOPHEN 325 MG TAB PO PRN (19:58)
[2025-01-08] MEDS: SODIUM CHLORIDE 0.9% 1,000 ML IV ONE (21:32)
[2025-01-09] VITALS (9 sets, daily range): BP systolic 81–103; BP diastolic 37–63; PULSE 65–89; RESP 16–20; TEMP 97.2–98.8; O2SAT 93–96
[2025-01-09] MEDS: SODIUM CHLORIDE 0.9% 500 ML IV ONE (00:05)
[2025-01-09] MEDS: MIDODRINE HCL 10 MG TAB PO SCH (00:05)
[2025-01-09 01:53] LABS: Hematocrit 29.1 % (36.0-46.0); Hemoglobin 10.1 g/dL (12.2-16.2); Mean Corpuscular Hemoglobin 33.8 pg (28.0-32.0); Mean Corpuscular Volume 96.9 fL (80.0-100.0); Nucleated Red Blood Cells % 0.1 %
[2025-01-09 05:51] LABS: Hematocrit 30.1 % (36.0-46.0); Hemoglobin 10.6 g/dL (12.2-16.2); Nucleated Red Blood Cells % 0.0 %
[2025-01-09 05:57] LABS: Alanine Aminotransferase 35 U/L (7-40); Albumin 3.4 g/dL (3.2-4.8); Alkaline Phosphatase 51 U/L (46-116); Anion Gap 8 (5-15); BUN/Creatinine Ratio 11.1 (10.0-20.0); Calcium 8.8 mg/dL (8.7-10.4); Carbon Dioxide 25 mmol/L (20-31); Mean Corpuscular Hemoglobin 34.5 pg (28.0-32.0); Mean Corpuscular Volume 97.4 fL (80.0-100.0); Sodium 142 mmol/L (136-145)
[2025-01-09 05:58] LABS: Bilirubin, Total 0.6 mg/dL (0.2-1.0)
[2025-01-09 06:02] LABS: Blood Urea Nitrogen 7 mg/dL (9-23); Chloride 109 mmol/L (98-107); Glucose 122 mg/dL (74-106); Potassium 3.3 mmol/L (3.5-5.1); Total Protein 5.1 g/dL (5.7-8.2)
[2025-01-09] MEDS: TAMSULOSIN HYDROCHLORIDE 0.4 MG CAP PO SCH (08:24)
[2025-01-09] MEDS: ONDANSETRON HCL 4 MG/2 ML VIAL IV PRN (12:04)
--- NOTE | 2025-01-09 12:44 | DVHPN2 ---
Reviewed: Care Plan, H&P, Labs, Medications, Previous Orders, Radiology Changes from previous H/P or p: No Changes General: Per HPI Musculoskeletal: other (Right flank pain) Objective Vitals Vital Signs Date Time Temp Pulse Resp B/P (MAP) Pulse Ox O2 Delivery O2 Flow Rate FiO2 01/09/25 09:00 97.8 65 18 81/50 (60) 95 97.8 01/08/25 20:00 Room Air* 0 21 Intake/Output Intake and Output 01/09/25 07:00 Intake Total 2230 ml Output Total 775 ml Balance 1455 ml Intake Oral 1100 ml IV Total 1130 ml Output Drainage Total 775 ml # Voids 4 General Appearance: Alert, Oriented X3, Cooperative Abdomen: Normal bowel sounds, Soft, No tenderness Neuro: Normal gait, Normal speech Medications Current Medications Medications Dose Ordered Sig/Mary Route Start Time Stop Time Status Last Admin Dose Admin Sodium Chloride 1,000 ml @ 120 mls/hr Q8H20M IV 01/08/25 11:15 01/08/25 17:15 120 MLS/HR Acetaminophen/ Hydrocodone Bitart 1 tab Q4HP PRN PO 01/08/25 11:15 01/08/25 18:11 1 TAB Ondansetron HCl 4 mg Q4HP PRN IV 01/08/25 11:15 01/09/25 12:04 4 MG Acetaminophen 650 mg Q6HP PRN PO 01/08/25 11:15 01/09/25 06:27 650 MG Morphine Sulfate 2 mg Q4HPRN PRN IV 01/08/25 11:15 Ceftriaxone Sodium 50 ml @ 100 mls/hr DAILY@09 IV 01/08/25 11:15 01/09/25 08:24 100 MLS/HR Diagnostic Test (Pha) 1 strip ACHS 01/08/25 11:30 01/09/25 11:30 1 STRIP Insulin Human Regular ACHS SC 01/08/25 11:30 Dextrose 50 ml UD PRN IV 01/08/25 11:30 Tamsulosin HCl 0.4 mg DAILY PO 01/09/25 10:00 01/09/25 08:24 0.4 MG Midodrine 10 mg TID@0600,1200,1800 PO 01/08/25 23:45 01/09/25 11:58 10 MG Laboratory Results Laboratory Tests 01/09/25 04:14 Chemistry Test 01/09/25 04:14 Albumin 3.4 g/dL (3.2-4.8) Calcium Level 8.8 mg/dL (8.7-10.4) Total Protein 5.1 g/dL (5.7-8.2) L LFT Test 01/09/25 04:14 Alanine Aminotransferase (ALT) 35 U/L (7-40) Alkaline Phosphatase 51 U/L (46-116) Aspartate Amino Transferase (AST) 15 U/L (13-40) Total Bilirubin 0.6 mg/dL (0.2-1.0) Urinalysis Test 01/08/25 10:00 Urine Color Light-yellow (Yellow) Urine Clarity Clear (Clear) Urine pH 5.5 (5.0-9.0) Urine Specific [place] 1.023 (1.001-1.035) Urine Protein Negative (Negative) Urine Ketones Negative (Negative) Urine Blood 2+ /uL (Negative) H Urine Nitrite Negative (Negative) Urine Bilirubin Negative (Negative) Urine Urobilinogen Normal mg/dL (Negative) Urine Leukocyte Esterase Trace /uL (Negative) Urine RBC 17 /hpf (0 - 4) Urine Microscopic WBC 14 /HPF (0-5) H Urine Squamous Epithelial Cells Few /hpf (<5) Urine Bacteria None seen /hpf (None Seen) Urine Mucus Few (None Seen) Urine Glucose Normal mg/dL (Normal) Assessment/Plan Assessment/Plan Ariana Naidu is a 34-year-old female with past medical history of kidney stones, , hysterectomy, tubal ligation, and lithotripsy unknown which kidney in 2008 who presents to the ED with right flank pain. Patient was a transfer from [facility] diagnosed with an 8 mm obstructing right kidney stone and 6 mm nonobstructing left kidney stone. Patient reports her pain 8/10 sharp and constant. She states that medications make it better and the pain that started yesterday around 3:00 p.m. Patient denies any recent sick contacts, recent trauma or injury, recent travels, recent ingestion of spoiled food, abdominal pain, nausea, vomiting, diarrhea, chest pain, shortness of breath, fever, chills, lightheadedness, weakness, or dizziness. hydronephrosis kidney stone, recurrent flank pain, intractable s/p nephrostomy BP is still low, bolus 1 liter, then on mainetance fluid possible dc/ in am Plan discussed with: Patient Date of Service: Jan 09, 2025 Billing Provider: DIMAS MCKEON DO Common Visit Codes: [id number] INP/OBS CARE(HIGH) DIMAS MCKEON DO Jan 09, 2025 12:44
[2025-01-09] MEDS: SODIUM CHLORIDE 0.9% 1,000 ML IV ONE (13:45)
[2025-01-10] VITALS (7 sets, daily range): BP systolic 96–121; BP diastolic 55–74; PULSE 79–101; RESP 17–20; TEMP 97.9–99.5; O2SAT 90–95
[2025-01-10] MEDS ORDERED: TAMS-35 PO (15:48)
[2025-01-10] MEDS ORDERED: CEPH250C PO (15:48)
--- NOTE | 2025-01-10 15:50 | DVHDS2 ---
Discharge Summary Date of Admission Jan 08, 2025 at 11:15 Date of Discharge: Jan 10, 2025 Labs/Diagnostic Data: Laboratory Results Test 01/10/25 11:20 01/09/25 04:14 01/09/25 01:30 01/08/25 12:15 POC Glucose 114 mg/dl (70-106) White Blood Count 9.7 10^3/uL (4.4-10.8) Red Blood Count 3.09 10^6/uL (4.0-5.20) Hemoglobin 10.6 g/dL (12.2-16.2) Hematocrit 30.1 % (36.0-46.0) Mean Corpuscular Volume 97.4 fL (80.0-100.0) Mean Corpuscular Hemoglobin 34.5 pg (28.0-32.0) Mean Corpuscular Hemoglobin Concent 35.4 g/dL (32.0-36.0) Red Cell Distribution Width 13.0 % (11.8-14.3) Platelet Count 191 10^3/uL (140-450) Mean Platelet Volume 8.4 fL (6.9-10.8) Neutrophils (%) (Auto) 73.0 % (37.0-80.0) Lymphocytes (%) (Auto) 18.3 % (10.0-50.0) Monocytes (%) (Auto) 7.2 % (0.0-12.0) Eosinophils (%) (Auto) 1.3 % (0.0-7.0) Basophils (%) (Auto) 0.2 % (0.0-2.0) Neutrophils # (Auto) 7.1 10 ^3/uL (1.6-8.6) Lymphocytes # (Auto) 1.8 10 ^3/uL (0.4-5.4) Monocytes # (Auto) 0.7 10 ^3/uL (0-1.3) Eosinophils # (Auto) 0.1 10 ^3/uL (0-0.8) Basophils # (Auto) 0 10 ^3/uL (0-0.2) Nucleated Red Blood Cells 0.0 % Sodium Level 142 mmol/L (136-145) Potassium Level 3.3 mmol/L (3.5-5.1) Chloride Level 109 mmol/L (98-107) Carbon Dioxide Level 25 mmol/L (20-31) Anion Gap 8 (5-15) Blood Urea Nitrogen 7 mg/dL (9-23) Creatinine 0.63 mg/dL (0.550-1.02) Glomerular Filtration Rate Calc 119 mL/min (>90) BUN/Creatinine Ratio 11.1 (10.0-20.0) Serum Glucose 122 mg/dL (74-106) Calcium Level 8.8 mg/dL (8.7-10.4) Total Bilirubin 0.6 mg/dL (0.2-1.0) Aspartate Amino Transferase (AST) 15 U/L (13-40) Alanine Aminotransferase (ALT) 35 U/L (7-40) Alkaline Phosphatase 51 U/L (46-116) Total Protein 5.1 g/dL (5.7-8.2) Albumin 3.4 g/dL (3.2-4.8) Lactic Acid Level 1.1 mmol/L (0.4-2.0) Prothrombin Time 10.4 sec (9.3-11.8) Prothrombin Time INR 0.98 (0.9-1.15) Activated Partial Thromboplast Time 27.4 SEC (24.5-34.5) Test 01/08/25 10:00 01/08/25 06:54 Urine Color Light-yellow (Yellow) Urine Clarity Clear (Clear) Urine pH 5.5 (5.0-9.0) Urine Specific [place] 1.023 (1.001-1.035) Urine Protein Negative (Negative) Urine Ketones Negative (Negative) Urine Blood 2+ /uL (Negative) Urine Nitrite Negative (Negative) Urine Bilirubin Negative (Negative) Urine Urobilinogen Normal mg/dL (Negative) Urine Leukocyte Esterase Trace /uL (Negative) Urine RBC 17 /hpf (0 - 4) Urine Microscopic WBC 14 /HPF (0-5) Urine Squamous Epithelial Cells Few /hpf (<5) Urine Bacteria None seen /hpf (None Seen) Urine Mucus Few (None Seen) Urine Glucose Normal mg/dL (Normal) Hemoglobin A1c 5.0 % A1C (<5.7) Other Laboratory Tests 01/09/25 04:14 Brief Hx & Hospital Course: Ariana Naidu is a 34-year-old female with past medical history of kidney stones, , hysterectomy, tubal ligation, and lithotripsy unknown which kidney in 2008 who presents to the ED with right flank pain. Patient was a transfer [facility] diagnosed with an 8 mm obstructing right kidney stone and 6 mm nonobstructing left kidney stone. Patient reports her pain 8/10 sharp and constant. She states that medications make it better and the pain that started yesterday around 3:00 p.m. Patient denies any recent sick contacts, recent trauma or injury, recent travels, recent ingestion of spoiled food, abdominal pain, nausea, vomiting, diarrhea, chest pain, shortness of breath, fever, chills, lightheadedness, weakness, or dizziness. hydronephrosis kidney stone, recurrent flank pain, intractable s/p nephrostomy BP is still low, bolus 1 liter, then on mainetance fluid possible dc/ in am pt is discharged f/u with urology for removal of nephrostomy tube Condition at Discharge: Fair Final Diagnosis/Problems List same Discharge Disposition: Home Discharge Instruct/Medications Diet: Cardiac 2g Na,low cholest Activity: No Restrictions, As Tolerated Scheduled Cephalexin (Keflex Capsule), 2 CAP PO BID Tamsulosin Hcl (Flomax), 0.4 MG PO DAILY Discharge Statement: "Patient was advised to return to the ER or call 911 if any headaches, dizziness, shortness of breath, chest pain, abdominal pain, bleeding, fevers, or worsening of medical condition. Patient was counseled about treatment plan, medications, possible side effects, patientverbalized understanding. All questions were answered to the best of my ability. This discharge took greater then 30 minutes in planning, reviewing documentation, counseling the patient, and discussing with other team members." ASSESSMENT ASSESSMENT Assessment Date of Service: Jan 10, 2025 Billing Provider: DIMAS MCKEON DO Common Visit Codes: [id number] DISCH DAY >30min DIMAS MCKEON DO Jan 10, 2025 15:50
== END 2025-01-10 18:15 | disposition home or self-care (01) | DRG 465 ==
LOC: EDBD 06:03 → ER 06:03 → OVERFLOW 11:15 → WEST WING 16:29
PROVIDERS: ADMIT Internal Medicine; ATTEND Internal Medicine
PROC: 0T9030Z Drainage of Right Kidney with Drainage Device, Percutaneous Approach (ICD-10-PCS; principal; 2025-01-08)
DX: N13.2 Hydronephrosis with renal and ureteral calculous obstruction (principal); K76.0 Fatty (change of) liver, not elsewhere classified; E66.9 Obesity, unspecified; Z68.34 Body mass index [BMI] 34.0-34.9, adult; E11.65 Type 2 diabetes mellitus with hyperglycemia; D72.829 Elevated white blood cell count, unspecified; Z87.442 Personal history of urinary calculi; Z98.51 Tubal ligation status; Z98.891 History of uterine scar from previous surgery; Z90.710 Acquired absence of both cervix and uterus; Z83.3 Family history of diabetes mellitus; Z82.49 Family history of ischemic heart disease and other diseases of the circulatory system; Z80.6 Family history of leukemia; Z80.3 Family history of malignant neoplasm of breast; Z93.6 Other artificial openings of urinary tract status
CPT/HCPCS: 36415; 50435; 74176; 74425; 76942; 80048; 80053; 81001; 82962; 83036; 83605; 85025; 85610; 85730; 87040; 87086; 87088; 87186; 96365; 96375; 99152; 99291; 99292; G0378; J1885; J2250; J2405; Q9967